=== PATIENT | male | born 1940 | race Caucasian/White ===

== ENCOUNTER → 2018-05-27 | Outpatient (CLI) | payer OTHER ==
[~2018-05-27] MED LIST: FLUO60T BOTHEARS; HYDROCORTISONE ACETATE BOTHEARS; INSULANPEN SC; LISI5 PO; METF500C PO; Novolog100 UNIT/1 SC; SIMV10 PO; TERBINAFINE PO
== END ==
LOC: PLD 08:28 → LAB SHORT 08:28
DX: L11.9 Acantholytic disorder, unspecified (principal); L30.9 Dermatitis, unspecified
CPT/HCPCS: 88305; 88312

== ENCOUNTER 2018-06-06 08:25 | Day surgery (SDC) | payer OTHER ==
[~2018-06-06] VITALS: Ht 177.8 cm; Wt 94.8 kg
== END 2018-06-06 15:15 | disposition home or self-care (01) ==
LOC: ORSCMMR 08:25 → ORD 10:45 → ORSCMMR 15:15
PROVIDERS: Surgery
PROC: 0YU54JZ Supplement Right Inguinal Region with Synthetic Substitute, Percutaneous Endoscopic Approach (ICD-10-PCS; principal; 2018-06-06 10:45)
PROC: 8E0W4CZ Robotic Assisted Procedure of Trunk Region, Percutaneous Endoscopic Approach (ICD-10-PCS; principal; 2018-06-06 10:45)
DX: K40.91 Unilateral inguinal hernia, without obstruction or gangrene, recurrent (principal); I10 Essential (primary) hypertension; E11.9 Type 2 diabetes mellitus without complications; Z79.4 Long term (current) use of insulin; Z79.899 Other long term (current) drug therapy; Z79.82 Long term (current) use of aspirin
CPT/HCPCS: 49651; S2900; 82947; 88304; C1781; J0690; J2250; J3010; J7120

== ENCOUNTER 2022-06-21 11:48 | Inpatient (IN) | payer OTHER ==
[~2022-06-21] VITALS: Ht 177.8 cm; Wt 90.5 kg
[~2022-06-21 11:48] MED LIST changes: -Aspir 8181 MG PO; -CEPH500 PO; -TAMS.4ER PO; -Tambocor100 MG PO
[2022-06-21 12:28] LABS: BASOPHILS ABSOLUTE AUTO 0.02 K/mm3 (0.00-0.23); BASOPHILS PERCENT AUTO 0 % (0-2); EOSINOPHILS PERCENT AUTO 0 % (0-6); Hematocrit 37.8 % (37.0-53.0); Hemoglobin 12.6 g/dL (13.5-17.5); IMMATURE GRAN ABSOLUTE AUTO 0.08 K/mm3 (0.00-0.10); IMMATURE GRAN PERCENT AUTO 1 % (0-1); LYMPHOCYTES ABSOLUTE AUTO 1.01 K/mm3 (0.84-5.20); LYMPHOCYTES PERCENT AUTO 7 % (21-46); MONOCYTES ABSOLUTE AUTO 0.83 K/mm3 (0.16-1.47); MONOCYTES PERCENT AUTO 6 % (4-13); Mean Corpuscular HGB 30.9 pg (26.0-34.0); Mean Corpuscular HGB Conc 33.3 g/dL (31.5-36.5); Mean Corpuscular Volume 93 fL (80-100); Mean Platelet Volume 9.7 fL (9.1-12.4); NEUTROPHILS PERCENT AUTO 86 % (41-73); Platelet Count 210 K/mm3 (150-400); RDW Coefficient Variation 12.2 % (11.7-14.2); RDW Standard Deviation 41.4 fL (35.1-46.3); Red Blood Cell Count 4.08 M/mm3 (4.30-5.90); White Blood Cell Count 14.14 K/mm3 (4.00-11.30)
[2022-06-21 12:49] LABS: Albumin/Globulin Ratio 1.4 (0.8-1.8); Bilirubin, Total 0.3 mg/dL (0.1-1.0); Bun/Creatinine Ratio 15.8 (12.0-20.0); Calcium, Blood 9.5 mg/dL (8.5-10.1); Creatinine, Blood 1.33 mg/dL (0.60-1.20); Globulin, Blood 2.9 g/dL (2.2-4.0); Potassium, Blood 4.4 mmol/L (3.5-5.5); Total Protein, Blood 6.9 g/dL (6.4-8.2)
[2022-06-21] MEDS ORDERED: TAMS.4ER PO (14:49)
[2022-06-21] MEDS ORDERED: Aspir 8181 MG PO (14:49)
[2022-06-21 21:01] LABS: Source, Urine Clean Catch
[2022-06-21 21:05] LABS: Appearance, Urine Clear (Clear); Bilirubin, Urine Neg (Neg); Blood, Urine Neg (Neg); Color, Urine Yellow (P-Yellow); Glucose Qualitative, Urine 4+ (Neg); Ketones, Urine 2+ (Neg); Leukocyte Esterase, Urine Neg (Neg); Nitrite, Urine Neg (Neg); Protein, Urine Neg (Neg); Urobilinogen, Urine NORM (Normal)
--- NOTE | 2022-06-22 03:22 | NUR ---
Pt arrived on unit from ED around 1999. He was able to ambulate from cart to bed with SBA. A/ox4 and call light appropriate. No c/o dizziness or nausea while sitting or standing/ambulating during the shift. No c/o SOB, numbness/tingling. stated "I feel back to normal." Vital signs upon arrival were WNL, o2 >92% on RA, afebrile. No calls from receptionist telephone operator overnight. pt has been running sinus tach. no c/o pain. Voiding adequate amounts. insulin given per OCT. planning for a possible echo today.
[2022-06-22 05:23] LABS: BASOPHILS ABSOLUTE AUTO 0.01 K/mm3 (0.00-0.23); BASOPHILS PERCENT AUTO 0 % (0-2); EOSINOPHILS ABSOLUTE AUTO 0.08 K/mm3 (0.00-0.68); EOSINOPHILS PERCENT AUTO 1 % (0-6); Hematocrit 36.5 % (37.0-53.0); Hemoglobin 11.8 g/dL (13.5-17.5); IMMATURE GRAN ABSOLUTE AUTO 0.02 K/mm3 (0.00-0.10); IMMATURE GRAN PERCENT AUTO 0 % (0-1); LYMPHOCYTES PERCENT AUTO 16 % (21-46); MONOCYTES PERCENT AUTO 11 % (4-13); Mean Corpuscular HGB 30.3 pg (26.0-34.0); Mean Corpuscular HGB Conc 32.3 g/dL (31.5-36.5); Mean Corpuscular Volume 94 fL (80-100); Mean Platelet Volume 9.8 fL (9.1-12.4); NEUTROPHILS ABSOLUTE AUTO 6.28 K/mm3 (1.96-9.15); NEUTROPHILS PERCENT AUTO 72 % (41-73); Platelet Count 201 K/mm3 (150-400); RDW Coefficient Variation 12.2 % (11.7-14.2); RDW Standard Deviation 42.2 fL (35.1-46.3); Red Blood Cell Count 3.89 M/mm3 (4.30-5.90); White Blood Cell Count 8.79 K/mm3 (4.00-11.30)
[2022-06-22 05:49] LABS: Albumin, Blood 3.2 g/dL (3.4-5.0); Anion Gap 7 mmol/L (6-16); Blood Urea Nitrogen 18 mg/dL (8-24); Bun/Creatinine Ratio 14.3 (12.0-20.0); CO2, Blood 28 mmol/L (21-32); Calcium, Blood 9.1 mg/dL (8.5-10.1); Chloride, Blood 106 mmol/L (98-108); Creatinine, Blood 1.26 mg/dL (0.60-1.20); Glomerular Filtration Rate 58 (60-); Glucose, Blood 111 mg/dL (70-99); Magnesium, Blood 1.5 mg/dL (1.6-2.4); Potassium, Blood 4.1 mmol/L (3.5-5.5); Sodium, Blood 141 mmol/L (136-145)
--- NOTE | 2022-06-22 09:58 | NUR ---
CONTACTED BY HEEL TRIMMER, PT HAD 4 SEC PAUSE, HR DROPPED DOWN TO 30'S AND RETURNED TO 60'S. PT ASYMPTOMATIC. INFORMED DR WILLIAMSON, NO NEW ORDERS RECEIVED.
--- NOTE | 2022-06-22 17:58 | NUR ---
SHIFT SUMMARY PT ALERT AND ORIENTED, CALLS APPROPRITATELY. ECHO COMPLETED, PENDING RESULTS. PT WITH 4 SEC PAUSE TODAY, CARDIOLOGY CONSULTED, PENDING EVALUATION TOMORROW FOR PACEMAKER PLACEMENT. PT REMAINS SR ON MONITOR, ON RA SPO2 > 92%. NO C/O PAIN, SBA TO BATHROOM. CALL LIGHT WITHIN REACH.
--- NOTE | 2022-06-23 04:36 | NUR ---
shift summary 82 yr m admitted on 06/22/22 for syncope. FULL CODE. NO ACUTE CHANGES THIS SHIFT. NO SYNCOPE EPISODES THIS SHIFT. PT HAS HAD NO C/O PAIN, DIZZINESS, N/V THIS SHIFT. NO CALLS FROM [facility] FOR ABNORMAL HEART RYTHMS. PT HAS BEEN NPO SINCE MIDNIGHT AND WILL CONSULT W/ CARDIOLOGY TODAY TO EVALUATE FOR PACEMAKER. HE IS PLEASANT AND COOPERATIVE AND HAS SLEPT FOR MOST OF THE NIGHT.
[2022-06-23 06:22] LABS: International Normalized Ratio 1.01; Prothrombin Time Results 10.6 Sec (9.7-11.5)
[2022-06-23 06:43] LABS: BASOPHILS ABSOLUTE AUTO 0.04 K/mm3 (0.00-0.23); BASOPHILS PERCENT AUTO 1 % (0-2); EOSINOPHILS ABSOLUTE AUTO 0.15 K/mm3 (0.00-0.68); EOSINOPHILS PERCENT AUTO 2 % (0-6); Hematocrit 35.4 % (37.0-53.0); Hemoglobin 11.9 g/dL (13.5-17.5); IMMATURE GRAN ABSOLUTE AUTO 0.05 K/mm3 (0.00-0.10); IMMATURE GRAN PERCENT AUTO 1 % (0-1); LYMPHOCYTES ABSOLUTE AUTO 1.31 K/mm3 (0.84-5.20); LYMPHOCYTES PERCENT AUTO 21 % (21-46); MONOCYTES PERCENT AUTO 13 % (4-13); Mean Corpuscular HGB 30.4 pg (26.0-34.0); Mean Corpuscular HGB Conc 33.6 g/dL (31.5-36.5); Mean Corpuscular Volume 91 fL (80-100); NEUTROPHILS ABSOLUTE AUTO 4.05 K/mm3 (1.96-9.15); NEUTROPHILS PERCENT AUTO 63 % (41-73); RDW Coefficient Variation 12.3 % (11.7-14.2); RDW Standard Deviation 40.3 fL (35.1-46.3); Red Blood Cell Count 3.91 M/mm3 (4.30-5.90)
[2022-06-23 06:44] LABS: Albumin, Blood 3.1 g/dL (3.4-5.0); Anion Gap 8 mmol/L (6-16); Blood Urea Nitrogen 20 mg/dL (8-24); Bun/Creatinine Ratio 13.4 (12.0-20.0); CO2, Blood 28 mmol/L (21-32); Chloride, Blood 106 mmol/L (98-108); Creatinine, Blood 1.49 mg/dL (0.60-1.20); Glomerular Filtration Rate 47 (60-); Glucose, Blood 93 mg/dL (70-99); Phosphorus, Blood 3.4 mg/dL (2.5-4.9); Sodium, Blood 142 mmol/L (136-145)
[2022-06-23 06:52] LABS: Mean Platelet Volume 10.8 fL (9.1-12.4)
[2022-06-23 07:47] LABS: Platelet Count 174 K/mm3 (150-400)
--- NOTE | 2022-06-23 19:31 | NUR ---
SHIFT SUMMARY; KATHIENT IS PLEASANT AND COOPERATIVE [facility]. DID COME TO SEE TEENA TODAY AND PLAN IS FOR PATIENT TO POSSIBLY HAVE PACEMAKER SATURDAY OR SATURDAY. PER MD PATIENT IS TO BE NPO AT MIDNIGHT TONIGHT AND WILL LET PATIENT AND RN KNOW IN THE AM WHAT PLAN WOULD BE. QUAL FIELD MANAGER CALLS EARLY AFTERNOON TO LET THIS RN KNOW THAT PATIENT HAS HAD 3 EPISODES OF PAUSESS 3 SECONDS OR LESS IN THE PAST 1 1/2 HOURS. 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 PASSED ON TO NOC SHIFT RN. TEENA REMAINS ASYMPTOMATIC.
--- NOTE | 2022-06-24 04:34 | NUR ---
SHIFT SUMMARY Pt A/Ox4 and call light appropraite. This shift pt denied dizzines and pain. No tele calls overnight. Patient has been NPO since midnight for possible pacemaker placement today. Pt has been transfering independatly in his room.
--- NOTE | 2022-06-24 17:47 | NUR ---
PT SUMMARY: PT RECEIVED AT [address] PAK. SITE ON DELMI WITH DRESSING CDI, SLIGHTLY TENDER TO TOUCH NO REDNESS AND INCREASE DRAINAGE NOTED. PT COMPLIANT WITH SLING IN PLACE ON JUSTO, EDUCATED ABOUT IMPORTANCE OF NOT USING LEFT ARM WITH ACTIVITY, PT VERBALIZED UNDERSTANDING. VITALS HAS BEEN STABLE. SBA FOR TRANSFERS. DENIES CHEST PAIN/PRESSURE. HRR HAS BEEN SINUS AT 70'S, ON RA, AFEBRILE. AT BEDSIDE POST PROCEDURE WAS UPDATED REGARDING PT'S PLACE OF CARE. NO OTHER ISSUES ENCOUNTERED AT THIS TIME. ABLE TO MAKE NEED KNOWN, WILL REPORT TO ONCOMING SHIFT
--- NOTE | 2022-06-25 05:41 | NUR ---
SHIFT SUMMARY PT A&O X4. RESPONDING TO QUESTIONS APPROPRIATELY. PT REPORTS SORENESS IN L ARM DUE TO PROCEDURE. DRESSING C/D/I, SLING IN PLACE. VSS. PT DENIES SOB, CHEST PAIN/PRESSURE, DIZZINESS OR LIGHTHEADNESS. PT UP IN ROOM INDEPENDENTLY TO USE RESTROOM AND URINAL. NO ACUTE CHANGES DURING SHIFT. CURRENTLY PT APPEARS TO BE SLEEPING, CALL LIGHT IN REACH AND BED IN LOWEST POSITION
[2022-06-25] MEDS ORDERED: CEPH500 PO (12:14)
[2022-06-25] MEDS ORDERED: Tambocor100 MG PO (12:14)
--- NOTE | 2022-06-25 13:40 | NUR ---
PT DISCHARGE TO HOME WITH DISCHARGE ORDERS. DR PAK SAW PT THIS MORNING CHANGED THE PACER SITE DRESSING. SITE CARE INSTRUCTIONS PROVIDED, NEW MEDICATIONS AND FF-UP APPTS DISCLOSED WITH THE PT, WITH THE DATE AND TIME OF APPTS, NEW PRESCRIPTION SENT TO [facility]. NO OTHER ISSUES ENCOUNTERED PRIOR TO DISCHARGE, C/O DISCOMFORT AT THE SITE ICE PACK APPLIED AND WAS EFFECTIVE. VITALS STABLE. PROVIDED TRANSPORTATION. ALL BELONGINGS SENT [facility]
== END 2022-06-25 13:11 | disposition home or self-care (01) | DRG 244 ==
LOC: ER 11:48 → MEDS 11:49 → PCU 06-22 15:15 → MEDS 06-22 15:15 → PCU 06-24 12:11
PROVIDERS: Physician Assistant; ADMIT Family Medicine
PROC: 0JH606Z Insertion of Pacemaker, Dual Chamber into Chest Subcutaneous Tissue and Fascia, Open Approach (ICD-10-PCS; principal; 2022-06-24)
PROC: 02H63JZ Insertion of Pacemaker Lead into Right Atrium, Percutaneous Approach (ICD-10-PCS; 2022-06-24)
PROC: 02HK3JZ Insertion of Pacemaker Lead into Right Ventricle, Percutaneous Approach (ICD-10-PCS; 2022-06-24)
DX: I44.1 Atrioventricular block, second degree (principal); E11.22 Type 2 diabetes mellitus with diabetic chronic kidney disease; N18.9 Chronic kidney disease, unspecified; I49.5 Sick sinus syndrome; I12.9 Hypertensive chronic kidney disease with stage 1 through stage 4 chronic kidney disease, or unspecified chronic kidney disease; E78.00 Pure hypercholesterolemia, unspecified; R94.31 Abnormal electrocardiogram [ECG] [EKG]; D63.1 Anemia in chronic kidney disease; H53.8 Other visual disturbances; Z98.890 Other specified postprocedural states; Z98.52 Vasectomy status; Z79.4 Long term (current) use of insulin; Z87.891 Personal history of nicotine dependence; Z79.82 Long term (current) use of aspirin; Z79.811 Long term (current) use of aromatase inhibitors; Z79.84 Long term (current) use of oral hypoglycemic drugs; Z79.899 Other long term (current) drug therapy
CPT/HCPCS: 33208; 36415; 71045; 71046; 76937; 80053; 80069; 81003; 82947; 83520; 83735; 84484; 85025; 85610; 93005; 93010; 93306; 96374; 99152; 99153; 99285-25; A9270; C1781; C1785; C1894; C1898; J0690; J1644; J1815; J2250; J2405; J3010; J3475; J7030; J7040

== ENCOUNTER → 2022-06-21 | Outpatient (CLI) | payer OTHER ==
[~2022-06-21] MED LIST changes: +Aspir 8181 MG PO; +CEPH500 PO; +TAMS.4ER PO; +Tambocor100 MG PO
[2022-06-21 10:14] LABS: BASOPHILS ABSOLUTE AUTO 0.03 K/mm3 (0.00-0.23); BASOPHILS PERCENT AUTO 0 % (0-2); EOSINOPHILS ABSOLUTE AUTO 0.02 K/mm3 (0.00-0.68); EOSINOPHILS PERCENT AUTO 0 % (0-6); Hematocrit 39.1 % (37.0-53.0); Hemoglobin 13.1 g/dL (13.5-17.5); IMMATURE GRAN ABSOLUTE AUTO 0.08 K/mm3 (0.00-0.10); IMMATURE GRAN PERCENT AUTO 1 % (0-1); LYMPHOCYTES ABSOLUTE AUTO 1.48 K/mm3 (0.84-5.20); LYMPHOCYTES PERCENT AUTO 15 % (21-46); MONOCYTES ABSOLUTE AUTO 0.86 K/mm3 (0.16-1.47); MONOCYTES PERCENT AUTO 9 % (4-13); Mean Corpuscular HGB 30.8 pg (26.0-34.0); Mean Corpuscular HGB Conc 33.5 g/dL (31.5-36.5); Mean Corpuscular Volume 92 fL (80-100); Mean Platelet Volume 9.8 fL (9.1-12.4); NEUTROPHILS ABSOLUTE AUTO 7.63 K/mm3 (1.96-9.15); NEUTROPHILS PERCENT AUTO 76 % (41-73); Platelet Count 228 K/mm3 (150-400); RDW Coefficient Variation 12.3 % (11.7-14.2); RDW Standard Deviation 40.8 fL (35.1-46.3); Red Blood Cell Count 4.26 M/mm3 (4.30-5.90)
[2022-06-21 10:29] LABS: Albumin, Blood 3.9 g/dL (3.4-5.0); Albumin/Globulin Ratio 1.3 (0.8-1.8); Bilirubin, Total 0.3 mg/dL (0.1-1.0); Calcium, Blood 9.1 mg/dL (8.5-10.1); Creatinine, Blood 1.43 mg/dL (0.60-1.20); Potassium, Blood 4.4 mmol/L (3.5-5.5); Total Protein, Blood 6.9 g/dL (6.4-8.2)
== END ==
LOC: LAB SHORT 10:10 → LAB 10:10
PROVIDERS: Physician Assistant
DX: R55 Syncope and collapse (principal)
CPT/HCPCS: 80053; 84484; 85025

== ENCOUNTER → 2023-01-18 | Outpatient (CLI) | payer OTHER ==
[~2023-01-18] MED LIST changes: +Aspir 8181 MG PO; +CEPH500 PO; +TAMS.4ER PO; +Tambocor100 MG PO
[2023-01-18 18:39] LABS: Creatinine, Urine Random 63.8 mg/dL (27.00-270.00)
[2023-01-18 18:42] LABS: Microalb/Creat Ratio UR, Rand 9.875 mg/g (0.000-30.000); Microalbumin, Random Urine 6.3 mg/L (0.000-20.000)
== END | disposition home or self-care (01) ==
LOC: LAB SHORT 08:10 → LAB 08:10
PROVIDERS: Internal Medicine Endocrinology, Diabetes & Metabolism
DX: E11.22 Type 2 diabetes mellitus with diabetic chronic kidney disease (principal); E11.3393 Type 2 diabetes mellitus with moderate nonproliferative diabetic retinopathy without macular edema, bilateral; E11.39 Type 2 diabetes mellitus with other diabetic ophthalmic complication; E11.42 Type 2 diabetes mellitus with diabetic polyneuropathy; E11.69 Type 2 diabetes mellitus with other specified complication; E11.51 Type 2 diabetes mellitus with diabetic peripheral angiopathy without gangrene; E11.65 Type 2 diabetes mellitus with hyperglycemia
CPT/HCPCS: 82043; 82570

== ENCOUNTER 2024-02-21 08:09 | Observation (INO) | payer OTHER ==
[~2024-02-21] VITALS: Ht 182.9 cm; Wt 84.4 kg
[~2024-02-21 08:09] MED LIST changes: +CLOP75 PO; +JARDIANCE25 MG PO; +LIPITOR80 MG PO; +NOVOLOG FL100 UNIT/3 SC; -Novolog100 UNIT/1 SC; +TOPROL XL50 M1 PO
[2024-02-21] MEDS ORDERED: Adenosine 3 MG/ML 2 ML Vial ONE (08:21)
[2024-02-21] MEDS ORDERED: NS 1,000 ML IV ONE ×2 (08:22→08:57)
[2024-02-21] MEDS ORDERED: Adenosine 3 MG/ML 4ML Vial IV ONE (08:25)
[2024-02-21] MEDS ORDERED: Adenosine 3 MG/ML 2 ML Vial IV ONE (08:25)
[2024-02-21] MEDS ORDERED: dilTIAZem HCL 125 MG in Dextrose 5% 100 ML IV SCH (08:35)
[2024-02-21] MEDS ORDERED: Diltiazem HCl 5 MG / ML 5ML Vial IV ONE (08:35)
[2024-02-21 08:39] LABS: BASOPHILS ABSOLUTE AUTO 0.03 K/mm3 (0.00-0.23); BASOPHILS PERCENT AUTO 0 % (0-2); EOSINOPHILS ABSOLUTE AUTO 0.18 K/mm3 (0.00-0.68); EOSINOPHILS PERCENT AUTO 2 % (0-6); Hematocrit 41.9 % (37.0-53.0); Hemoglobin 13.8 g/dL (13.5-17.5); IMMATURE GRAN ABSOLUTE AUTO 0.02 K/mm3 (0.00-0.10); IMMATURE GRAN PERCENT AUTO 0 % (0-1); LYMPHOCYTES ABSOLUTE AUTO 2.28 K/mm3 (0.84-5.20); LYMPHOCYTES PERCENT AUTO 31 % (21-46); MONOCYTES ABSOLUTE AUTO 0.83 K/mm3 (0.16-1.47); MONOCYTES PERCENT AUTO 11 % (4-13); Mean Corpuscular HGB 30.9 pg (26.0-34.0); Mean Corpuscular HGB Conc 32.9 g/dL (31.5-36.5); Mean Corpuscular Volume 94 fL (80-100); Mean Platelet Volume 9.2 fL (9.1-12.4); NEUTROPHILS ABSOLUTE AUTO 4.13 K/mm3 (1.96-9.15); NEUTROPHILS PERCENT AUTO 55 % (41-73); Platelet Count 226 K/mm3 (150-400); RDW Coefficient Variation 12.2 % (11.7-14.2); RDW Standard Deviation 42.2 fL (35.1-46.3); Red Blood Cell Count 4.47 M/mm3 (4.30-5.90); White Blood Cell Count 7.47 K/mm3 (4.00-11.30)
[2024-02-21 08:59] LABS: International Normalized Ratio 0.98; Prothrombin Time Results 10.5 Sec (9.7-11.5)
[2024-02-21 08:59] LABS: Albumin, Blood 4.1 g/dL (3.4-5.0); Albumin/Globulin Ratio 1.3 (0.8-1.8); Bilirubin, Total 0.5 mg/dL (0.1-1.0); Bun/Creatinine Ratio 11.4 (12.0-20.0); Calcium, Blood 9.9 mg/dL (8.5-10.1); Creatinine, Blood 1.4 mg/dL (0.60-1.20); Globulin, Blood 3.2 g/dL (2.2-4.0); Magnesium, Blood 2.1 mg/dL (1.6-2.4); Potassium, Blood 3.9 mmol/L (3.5-5.5); Total Protein, Blood 7.3 g/dL (6.4-8.2)
[2024-02-21] MEDS ORDERED: NS 1,000 ML IV SCH (09:00)
[2024-02-21] MEDS ORDERED: Metoprolol Succinate 50 MG TABCR PO SCH (11:00)
[2024-02-21] MEDS ORDERED: Metoprolol Succinate 25 MG TABCR PO ONE (11:25)
[2024-02-21 16:03] VITALS: BP 113/61
[2024-02-21] MEDS ORDERED: Insulin Human Lispro 100 Units/ML 3ML Syringe SC SCH (16:30)
--- NOTE | 2024-02-21 19:35 | NUR ---
ADMISSION/SHIFT SUMMARY: PT IS A NEW ADMIT, ARRIVING F/ER APPROX 1600. PT TRANSFERS SELF TO BED W/OUT DIFFICULTY. PT IS A&Ox4, COOPERATIVE W/CARE, ANSWERING QUESTIONS APPROPRIATELY. PT DENIES SOB, O2 SATS >93% ON RA. PT DENIES CP, PACED ON MONITOR W/RATE 60, PACEMAKER INTERROGATED IN ER. ACHS CHECKS IN PLACE. PT CONTINENT AT BASELINE AND DOES NOT REQUIRE AMBULATORY AID DESPITE HX OF R FOOT DROP. REPORT HAS BEEN GIVEN TO VANNESSA ADDISON TO ASSUME CARE OF PT.
[2024-02-21 20:39] VITALS: BP 112/56
[2024-02-21] MEDS ORDERED: Insulin Glargine-Yfgn 100 Unit/mL 3 ML SYR SC SCH (21:00)
[2024-02-21] MEDS ORDERED: Tamsulosin HCl 0.4 MG Cap PO SCH (21:00)
[2024-02-21] MEDS ORDERED: Atorvastatin 40 MG Tab PO SCH (21:00)
[2024-02-22 00:05] VITALS: BP 105/55
[2024-02-22 04:55] VITALS: BP 109/56
[2024-02-22 05:38] LABS: BASOPHILS ABSOLUTE AUTO 0.02 K/mm3 (0.00-0.23); BASOPHILS PERCENT AUTO 0 % (0-2); EOSINOPHILS ABSOLUTE AUTO 0.21 K/mm3 (0.00-0.68); EOSINOPHILS PERCENT AUTO 3 % (0-6); Hematocrit 36.5 % (37.0-53.0); IMMATURE GRAN ABSOLUTE AUTO 0.03 K/mm3 (0.00-0.10); IMMATURE GRAN PERCENT AUTO 1 % (0-1); LYMPHOCYTES ABSOLUTE AUTO 1.38 K/mm3 (0.84-5.20); LYMPHOCYTES PERCENT AUTO 22 % (21-46); MONOCYTES ABSOLUTE AUTO 0.83 K/mm3 (0.16-1.47); MONOCYTES PERCENT AUTO 13 % (4-13); Mean Corpuscular HGB 30.9 pg (26.0-34.0); Mean Corpuscular HGB Conc 32.9 g/dL (31.5-36.5); Mean Corpuscular Volume 94 fL (80-100); Mean Platelet Volume 9.6 fL (9.1-12.4); NEUTROPHILS ABSOLUTE AUTO 3.93 K/mm3 (1.96-9.15); NEUTROPHILS PERCENT AUTO 61 % (41-73); Platelet Count 202 K/mm3 (150-400); RDW Coefficient Variation 12.6 % (11.7-14.2); RDW Standard Deviation 43.3 fL (35.1-46.3); Red Blood Cell Count 3.88 M/mm3 (4.30-5.90)
[2024-02-22 06:14] LABS: Albumin, Blood 3.2 g/dL (3.4-5.0); Albumin/Globulin Ratio 1.1 (0.8-1.8); Bilirubin, Total 0.4 mg/dL (0.1-1.0); Bun/Creatinine Ratio 14.2 (12.0-20.0); Calcium, Blood 8.9 mg/dL (8.5-10.1); Creatinine, Blood 1.27 mg/dL (0.60-1.20); Globulin, Blood 2.9 g/dL (2.2-4.0); Potassium, Blood 4.2 mmol/L (3.5-5.5); Total Protein, Blood 6.1 g/dL (6.4-8.2)
--- NOTE | 2024-02-22 06:17 | NUR ---
SHIFT SUMMARY PATIENT ALERT AND ORIENTED X4. HAD NO COMPLAINTS OF PAIN OR SHORTNESS OF BREATH. INDEPENDENT IN HIS ROOM. ON ROOM AIR WITH SPO2 >90%. VITAL SIGNS STABLE, PACED AT 60 WITH NO EVENTS ON TELE. NO ACUTE ISSUES NOTED OVERNIGHT. WILL CONTINUE TO MONITOR. CALL LIGHT WITHIN REACH.
[2024-02-22 07:51] VITALS: BP 131/52
[2024-02-22] MEDS ORDERED: Metoprolol Succinate 25 MG TABCR PO SCH (09:00)
[2024-02-22] MEDS ORDERED: Clopidogrel Bisulfate 75 MG Tab PO SCH (09:00)
[2024-02-22] MEDS ORDERED: Enoxaparin 40 MG/0.4 ML SYR SC SCH (09:00)
[2024-02-22] MEDS ORDERED: Aspirin 81 MG TabEC PO SCH (09:00)
[2024-02-22] MEDS ORDERED: Empagliflozin 25 MG TAB PO SCH (09:00)
[2024-02-22] MEDS ORDERED: METO25ER PO (10:21)
[2024-02-22 11:16] VITALS: BP 112/63
--- NOTE | 2024-02-22 11:42 | NUR ---
DISCHARGE SUMMARY PT A&OX4, VSS. DENIES CP/PRESSURE/DIZZINESS. DISCHARGE PAPERWORK REVIEWED W/ PT AND . PT VERBALIZED UNDERSTANDING TO FOLLOWUP WITH PCP. MEDICATION FAXED TO [facility] PER PT REQUEST. IV REMOVED. TELEMETRY REMOVED. PT HELPED DRESS. PT WHEELED TO PRIVATE VEHICLE.
== END 2024-02-22 10:23 | disposition home or self-care (01) ==
LOC: ER 08:09 → ERHOLD 08:10 → PCU 15:59
PROVIDERS: Physician Assistant; ADMIT Internal Medicine
DX: I47.10 Supraventricular tachycardia, unspecified (principal); R79.89 Other specified abnormal findings of blood chemistry; E11.22 Type 2 diabetes mellitus with diabetic chronic kidney disease; I12.9 Hypertensive chronic kidney disease with stage 1 through stage 4 chronic kidney disease, or unspecified chronic kidney disease; N18.30 Chronic kidney disease, stage 3 unspecified; N40.0 Benign prostatic hyperplasia without lower urinary tract symptoms; E78.5 Hyperlipidemia, unspecified; E55.9 Vitamin D deficiency, unspecified; M21.371 Foot drop, right foot; E53.8 Deficiency of other specified B group vitamins; I25.10 Atherosclerotic heart disease of native coronary artery without angina pectoris; I21.4 Non-ST elevation (NSTEMI) myocardial infarction; I48.91 Unspecified atrial fibrillation; Z79.82 Long term (current) use of aspirin; Z79.4 Long term (current) use of insulin; Z79.84 Long term (current) use of oral hypoglycemic drugs; Z79.899 Other long term (current) drug therapy; Z95.0 Presence of cardiac pacemaker
CPT/HCPCS: 36415; 71045; 80053; 82947; 83735; 84484; 85025; 85610; 93005; 93010; 96361; 96365; 96366; 96372; 96375; 99285-25; A9270; G0378; J0153; J1650; J1815; J7030

== ENCOUNTER → 2024-09-07 | Outpatient (CLI) | payer OTHER ==
[~2024-09-07] MED LIST changes: +METO25ER PO
[2024-09-07 11:32] LABS: Source, Urine Voided
[2024-09-07 11:42] LABS: Bacteria Not Seen /hpf; Red Blood Cells, Urine Not Seen /hpf (0-2); Squamous Epithelial Cells Rare /hpf (Few); White Blood Cells, Urine Not Seen /hpf (0-5)
== END ==
LOC: LAB SHORT 11:31 → LAB 11:31
PROVIDERS: Physician Assistant Medical
DX: R33.9 Retention of urine, unspecified (principal)
CPT/HCPCS: 81015

== ENCOUNTER 2025-04-22 20:19 | Emergency (ER) | payer OTHER ==
[~2025-04-22] VITALS: Ht 177.8 cm; Wt 86.2 kg
[2025-04-22 20:43] LABS: BASOPHILS ABSOLUTE AUTO 0.02 K/mm3 (0.00-0.23); BASOPHILS PERCENT AUTO 0 % (0-2); EOSINOPHILS ABSOLUTE AUTO 0.18 K/mm3 (0.00-0.68); EOSINOPHILS PERCENT AUTO 3 % (0-6); Hematocrit 38.4 % (37.0-53.0); Hemoglobin 12.5 g/dL (13.5-17.5); IMMATURE GRAN ABSOLUTE AUTO 0.02 K/mm3 (0.00-0.10); IMMATURE GRAN PERCENT AUTO 0 % (0-1); LYMPHOCYTES ABSOLUTE AUTO 2.39 K/mm3 (0.84-5.20); LYMPHOCYTES PERCENT AUTO 37 % (21-46); MONOCYTES ABSOLUTE AUTO 0.82 K/mm3 (0.16-1.47); MONOCYTES PERCENT AUTO 13 % (4-13); Mean Corpuscular HGB Conc 32.6 g/dL (31.5-36.5); Mean Corpuscular Volume 93 fL (80-100); NEUTROPHILS ABSOLUTE AUTO 3.01 K/mm3 (1.96-9.15); NEUTROPHILS PERCENT AUTO 47 % (41-73); NRBC ABSOLUTE 0.00 K/mm3 (0.00-0.02); NRBC Auto 0.0 /100 WBC (0.0-0.2); Platelet Count 228 K/mm3 (150-400); RDW Coefficient Variation 12.1 % (11.7-14.2); RDW Standard Deviation 42.2 fL (35.1-46.3)
[2025-04-22 21:08] LABS: Alanine Aminotransfer (ALT/SGP 20.0 U/L (12-78); Albumin, Blood 3.7 g/dL (3.4-5.0); Albumin/Globulin Ratio 1.0 (0.8-1.8); Anion Gap 10.0 mmol/L (3-11); Aspartate Aminotrans (AST/SGOT 14.0 U/L (12-37); Bilirubin, Total 0.4 mg/dL (0.1-1.0); Blood Urea Nitrogen 21.0 mg/dL (8-24); CO2, Blood 27.0 mmol/L (21-32); Calcium, Blood 9.3 mg/dL (8.5-10.1); Chloride, Blood 104.0 mmol/L (98-108); Creatinine, Blood 1.63 mg/dL (0.60-1.20); Globulin, Blood 3.7 g/dL (2.2-4.0); Glucose, Blood 238.0 mg/dL (70-99); Magnesium, Blood 2.0 mg/dL (1.6-2.4); Potassium, Blood 3.7 mmol/L (3.5-5.5); Sodium, Blood 137.0 mmol/L (136-145); Total Protein, Blood 7.4 g/dL (6.4-8.2)
[2025-04-22 22:00] VITALS: BP 134/61
== END 2025-04-22 22:22 | disposition home or self-care (01) ==
LOC: ER 20:19
PROVIDERS: Emergency Medicine
DX: I47.10 Supraventricular tachycardia, unspecified (principal); I12.9 Hypertensive chronic kidney disease with stage 1 through stage 4 chronic kidney disease, or unspecified chronic kidney disease; E11.22 Type 2 diabetes mellitus with diabetic chronic kidney disease; N18.30 Chronic kidney disease, stage 3 unspecified; Z95.0 Presence of cardiac pacemaker; Z79.82 Long term (current) use of aspirin; Z79.4 Long term (current) use of insulin; Z79.02 Long term (current) use of antithrombotics/antiplatelets; Z79.84 Long term (current) use of oral hypoglycemic drugs; Z79.899 Other long term (current) drug therapy
CPT/HCPCS: 71045; 80053; 83735; 85025; 93005; 93010; 99285-25; J0153

== ENCOUNTER → 2025-06-18 | Outpatient (CLI) | payer OTHER | LOC: LAB 07:45 → LAB SHORT 07:45 | DX: J02.9 Acute pharyngitis, unspecified (principal) | CPT/HCPCS: 87081 ==

== ENCOUNTER → 2025-08-04 | Outpatient (CLI) | payer OTHER | LOC: LAB SHORT 09:51 → LAB 09:51 | DX: H02.9 Unspecified disorder of eyelid (principal) | CPT/HCPCS: 88304 ==

== ENCOUNTER 2025-08-16 12:24 | Emergency (ER) | payer OTHER ==
[~2025-08-16] VITALS: Ht 177.8 cm; Wt 86.2 kg
[2025-08-16 12:53] LABS: BASOPHILS ABSOLUTE AUTO 0.02 K/mm3 (0.00-0.23); BASOPHILS PERCENT AUTO 0 % (0-2); EOSINOPHILS ABSOLUTE AUTO 0.14 K/mm3 (0.00-0.68); EOSINOPHILS PERCENT AUTO 2 % (0-6); Hematocrit 35.5 % (37.0-53.0); Hemoglobin 11.5 g/dL (13.5-17.5); IMMATURE GRAN ABSOLUTE AUTO 0.02 K/mm3 (0.00-0.10); IMMATURE GRAN PERCENT AUTO 0 % (0-1); LYMPHOCYTES ABSOLUTE AUTO 0.79 K/mm3 (0.84-5.20); LYMPHOCYTES PERCENT AUTO 10 % (21-46); MONOCYTES ABSOLUTE AUTO 1.04 K/mm3 (0.16-1.47); MONOCYTES PERCENT AUTO 13 % (4-13); Mean Corpuscular HGB Conc 32.4 g/dL (31.5-36.5); Mean Corpuscular Volume 95 fL (80-100); NEUTROPHILS ABSOLUTE AUTO 5.99 K/mm3 (1.96-9.15); NEUTROPHILS PERCENT AUTO 75 % (41-73); NRBC ABSOLUTE 0.00 K/mm3 (0.00-0.02); NRBC Auto 0.0 /100 WBC (0.0-0.2); Platelet Count 176 K/mm3 (150-400); RDW Coefficient Variation 12.7 % (11.7-14.2); RDW Standard Deviation 43.8 fL (35.1-46.3)
[2025-08-16 13:20] LABS: Alanine Aminotransfer (ALT/SGP 22.0 U/L (12-78); Albumin, Blood 3.5 g/dL (3.4-5.0); Albumin/Globulin Ratio 1.2 (0.8-1.8); Anion Gap 10.0 mmol/L (3-11); Aspartate Aminotrans (AST/SGOT 17.0 U/L (12-37); Bilirubin, Total 0.4 mg/dL (0.1-1.0); Blood Urea Nitrogen 21.0 mg/dL (8-24); CO2, Blood 25.0 mmol/L (21-32); Calcium, Blood 9.2 mg/dL (8.5-10.1); Chloride, Blood 107.0 mmol/L (98-108); Creatinine, Blood 1.79 mg/dL (0.60-1.20); Globulin, Blood 2.8 g/dL (2.2-4.0); Glucose, Blood 191.0 mg/dL (70-99); Potassium, Blood 4.4 mmol/L (3.5-5.5); Sodium, Blood 138.0 mmol/L (136-145); Total Protein, Blood 6.3 g/dL (6.4-8.2)
[2025-08-16 14:47] VITALS: BP 113/64
== END 2025-08-16 15:00 | disposition home or self-care (01) ==
LOC: ER 12:24
PROVIDERS: Student in an Organized Health Care Education/Training Program
DX: I48.91 Unspecified atrial fibrillation (principal); I12.9 Hypertensive chronic kidney disease with stage 1 through stage 4 chronic kidney disease, or unspecified chronic kidney disease; E11.22 Type 2 diabetes mellitus with diabetic chronic kidney disease; N18.30 Chronic kidney disease, stage 3 unspecified; E78.5 Hyperlipidemia, unspecified; Z95.0 Presence of cardiac pacemaker; Z79.4 Long term (current) use of insulin; Z79.84 Long term (current) use of oral hypoglycemic drugs; Z79.82 Long term (current) use of aspirin; Z79.899 Other long term (current) drug therapy
CPT/HCPCS: 71046; 80053; 84484; 85025